=== PATIENT | female | born 1980 | race Caucasian/White ===

== ENCOUNTER 2017-09-16 21:50 | Emergency (ER) | payer SELFPAY, MEDICAID ==
[~2017-09-16] VITALS: Ht 157.5 cm; Wt 52.2 kg
[2017-09-16 22:00] VITALS: BP 118/76
--- NOTE | 2017-09-16 22:14 | Emergency Room Report ---
History of Present Illness General Chief Complaint: Medical Clearance Source: Patient Present Illness HPI Patient presents with complaints of blood per rectum earlier this morning Patient reports that she was detoxing in intermediate for the past 2 days Denies any vomiting or diarrhea she feels that she was constipated However after having a bowel movement noticed some blood in the stool Denies any abdominal pain at this time denies any dysuria frequency Allergies: Coded Allergies: No Known Allergies (Unverified , 09/16/17) Patient History Past Medical History: see triage record Pertinent Family History: none Last Menstrual Period: 08/25/17 Now: No : 3 Para: 3 Reviewed Nursing Documentation: PMH: Agreed; PSxH: Agreed Nursing Documentation-PMH Hx Gastrointestinal Problems: Yes History Of Psychiatric Problem: Yes - Alcoholism Review of Systems All Other Systems: negative except mentioned in HPI Physical Exam Vital Signs Date Time Temp Pulse Resp B/P (MAP) Pulse Ox O2 Delivery O2 Flow Rate FiO2 09/16/17 21:51 98.0 74 14 113/76 99 Room Air 98.1 Sp02 EP Interpretation: reviewed, normal General Appearance: well appearing, no apparent distress Head: normocephalic, atraumatic Eyes: bilateral eye PERRL, bilateral eye EOMI ENT: normal pharynx, no angioedema Neck: supple Respiratory: lungs clear, normal breath sounds Cardiovascular #1: regular rate, rhythm Gastrointestinal: non tender, soft, no mass Rectal: normal exam, other - No hemorrhoids, Hemoccult negative Musculoskeletal: normal inspection Neurologic: alert, oriented x3, responsive Skin: normal color, no rash Lymphatic: no adenopathy Medical Decision Making Diagnostic Impression: Primary Impression: blood in stool Additional Impression: ok to book ER Course Given the patient's presentation rectal examination was performed no obvious hemorrhoids Hemoccult was negative no obvious active signs of hemorrhage at this time patient's hemodynamically stable And therefore is appropriate for close outpatient follow-up , Last Vital Signs Date Time Temp Pulse Resp B/P (MAP) Pulse Ox O2 Delivery O2 Flow Rate FiO2 09/16/17 21:51 98.0 74 14 113/76 99 Room Air 98.1 Status: unchanged Disposition: D/C TO LAW E[facility]ORCEMENT IN [facility] Condition: Stable Scripts No Active Prescriptions or Reported Meds Patient Instructions: Gastrointestinal Bleeding Additional Instructions: You had a benign medical examination today. There are no signs of active bleeding. Your stable for close intermediate M.D. follow-up in the morning Gabriel Benjamin DO Sep 16, 2017 22:14
[2017-09-16 22:30] VITALS: BP 113/76
== END 2017-09-16 22:30 ==
LOC: EMR 22:30
DX: R19.5 Other fecal abnormalities (principal); K62.5 Hemorrhage of anus and rectum
CPT/HCPCS: 99283